=== PATIENT | female | born 1975 | race Caucasian/White ===

== ENCOUNTER 2017-10-04 12:17 | Emergency (ER) | payer OTHER ==
[~2017-10-04] VITALS: Ht 170.2 cm; Wt 114.8 kg
[~2017-10-04 12:17] MED LIST: ACIDOPHILUS1 EAC1 PO; AMOCLA875 PO; Bactrim Ds Tab1 EACH PO; CEPH500 PO; CRUTCH3 USE; FLUO10 PO; HYDACE5 PO; HYDR1TAB94 PO; IBUP400 PO; IBUP600 PO; IBUP800 PO; INSULANPEN SC; METF500 PO; MULVITMIND PO; NAPR500 PO; Norco 5-325 Ta1 EACH PO; OXYACE5T PO; PRED5 PO; PROM25 PO; RXOXYACE PO; SACC250C PO; TRAM50 PO; Therapeutic M1 EAC5 PO; VARE1 PO; Zofran4 MG PO
[2017-10-04] MEDS ORDERED: IBUPROFEN PO (12:37)
[2017-10-04] MEDS ORDERED: ACET500 PO (12:37)
[2017-10-04] MEDS ORDERED: Bactrim Ds Tab1 EACH PO (13:17)
[2017-10-04] MEDS ORDERED: Norco 5-325 Ta1 EACH PO (13:17)
[2017-10-04] MEDS ORDERED: Keflex500 MG PO (13:17)
[2017-10-07] MEDS ORDERED: Vibramycin100 MG PO (09:31)
== END 2017-10-04 13:27 | disposition home or self-care (01) ==
LOC: ER 12:17
DX: L08.9 Local infection of the skin and subcutaneous tissue, unspecified (principal); Z88.8 Allergy status to other drugs, medicaments and biological substances; Z79.899 Other long term (current) drug therapy; E11.9 Type 2 diabetes mellitus without complications; F17.200 Nicotine dependence, unspecified, uncomplicated
CPT/HCPCS: 87070; 87077; 87147; 87186; 87205; 99283

== ENCOUNTER 2017-10-10 14:43 | Inpatient (IN) | payer OTHER ==
[~2017-10-10] VITALS: Ht 170.2 cm; Wt 112.5 kg
[~2017-10-10 14:43] MED LIST changes: +ACET500 PO; +IBUPROFEN PO; +Keflex500 MG PO; +Vibramycin100 MG PO
[2017-10-10 15:08] LABS: BASOPHILS ABSOLUTE AUTO 0.07 K/mm3 (0.00-0.23); BASOPHILS PERCENT AUTO 1 % (0-2); EOSINOPHILS ABSOLUTE AUTO 0.24 K/mm3 (0.00-0.68); EOSINOPHILS PERCENT AUTO 3 % (0-6); Hematocrit 41.6 % (33.0-51.0); IMMATURE GRAN ABSOLUTE AUTO 0.26 K/mm3 (0.00-0.10); IMMATURE GRAN PERCENT AUTO 3 % (0-1); LYMPHOCYTES ABSOLUTE AUTO 3.67 K/mm3 (0.84-5.20); LYMPHOCYTES PERCENT AUTO 38 % (21-46); MONOCYTES ABSOLUTE AUTO 0.45 K/mm3 (0.16-1.47); MONOCYTES PERCENT AUTO 5 % (4-13); Mean Corpuscular HGB 29.5 pg (26.0-34.0); Mean Corpuscular HGB Conc 33.7 g/dL (31.5-36.5); Mean Corpuscular Volume 88 fL (80-100); Mean Platelet Volume 8.9 fL (9.1-12.4); NEUTROPHILS ABSOLUTE AUTO 4.95 K/mm3 (1.96-9.15); NEUTROPHILS PERCENT AUTO 51 % (41-73); Platelet Count 508 K/mm3 (150-400); RDW Coefficient Variation 12.6 % (11.7-14.2); RDW Standard Deviation 40.2 fL (35.1-46.3); Red Blood Cell Count 4.75 M/mm3 (3.80-5.20); White Blood Cell Count 9.64 K/mm3 (4.00-11.30)
[2017-10-10 15:36] LABS: Alanine Aminotransfer (ALT/SGP 15 U/L (12-78); Albumin, Blood 3.1 g/dL (3.4-5.0); Albumin/Globulin Ratio 0.4 (0.8-1.8); Alk Phos 106 U/L (50-136); Anion Gap 6 mmol/L (6-16); Aspartate Aminotrans (AST/SGOT 17 U/L (12-37); Bilirubin, Total 0.3 mg/dL (0.1-1.0); Blood Urea Nitrogen 19 mg/dL (8-24); Bun/Creatinine Ratio 28.2 (12.0-20.0); CO2, Blood 25 mmol/L (21-32); Calcium, Blood 9.4 mg/dL (8.5-10.1); Chloride, Blood 104 mmol/L (98-108); Creatinine, Blood 0.67 mg/dL (0.40-1.00); Globulin, Blood 7.4 g/dL (2.2-4.0); Glomerular Filtration Rate >60 (60-); Glucose, Blood 195 mg/dL (70-99); Potassium, Blood 4.6 mmol/L (3.5-5.5); Sodium, Blood 135 mmol/L (136-145); Total Protein, Blood 10.5 g/dL (6.4-8.2)
[2017-10-11 11:48] LABS: Free Thyroxine 0.85 ng/dL (0.70-1.60)
[2017-10-11 11:51] LABS: Thyroid Stimulating Hormone 10.4 uIU/mL (0.360-4.800)
[2017-10-11 15:22] LABS: Creatinine, Blood 0.58 mg/dL (0.40-1.00); Vancomycin, Trough 23.7 ug/mL (5.0-10.0)
[2017-10-12 09:50] LABS: Creatinine, Blood 0.58 mg/dL (0.40-1.00); Vancomycin, Trough 22.9 ug/mL (5.0-10.0)
[2017-10-13] MEDS ORDERED: HYDR1TAB94 PO (11:44)
[2017-10-13] MEDS ORDERED: VANCOMYCIN IV (11:46)
[2017-10-13] MEDS ORDERED: Synthroid25 MCG PO (11:47)
[2017-10-13 12:05] LABS: Vancomycin, Trough 16.6 ug/mL (5.0-10.0)
== END 2017-10-13 15:03 | DRG 580 ==
LOC: ER 14:43 → MEDS 16:03 → ER 10-11 07:30 → MEDS 10-13 15:03
PROVIDERS: Emergency Medicine; Internal Medicine; Pharmacist; Student in an Organized Health Care Education/Training Program
PROC: 0J9R0ZZ Drainage of Left Foot Subcutaneous Tissue and Fascia, Open Approach (ICD-10-PCS; principal; 2017-10-11 07:30)
PROC: 02HV33Z Insertion of Infusion Device into Superior Vena Cava, Percutaneous Approach (ICD-10-PCS; 2017-10-13)
DX: L03.116 Cellulitis of left lower limb (principal); L02.612 Cutaneous abscess of left foot; E11.52 Type 2 diabetes mellitus with diabetic peripheral angiopathy with gangrene; L97.429 Non-pressure chronic ulcer of left heel and midfoot with unspecified severity; I96 Gangrene, not elsewhere classified; E11.621 Type 2 diabetes mellitus with foot ulcer; E11.65 Type 2 diabetes mellitus with hyperglycemia; B95.62 Methicillin resistant Staphylococcus aureus infection as the cause of diseases classified elsewhere; E11.42 Type 2 diabetes mellitus with diabetic polyneuropathy; F17.200 Nicotine dependence, unspecified, uncomplicated; G89.29 Other chronic pain; E78.5 Hyperlipidemia, unspecified; E03.9 Hypothyroidism, unspecified; E66.01 Morbid (severe) obesity due to excess calories; Z68.38 Body mass index [BMI] 38.0-38.9, adult; Z79.2 Long term (current) use of antibiotics; Z88.8 Allergy status to other drugs, medicaments and biological substances; Z79.4 Long term (current) use of insulin; Z79.891 Long term (current) use of opiate analgesic; Z79.899 Other long term (current) drug therapy
CPT/HCPCS: 36415; 36569; 80053; 80202; 82565; 82947; 83690; 84439; 84443; 84481; 85025; 87070; 87075; 87077; 87147; 87186; 87205; 99285; C1751; J0171; J1650; J1815; J2543; J3010; J3370; J7030; J7050; J7120

== ENCOUNTER 2017-10-13 00:06 | Day surgery (SDC) | payer OTHER ==
[2017-10-13] MEDS ORDERED: HYDR1TAB94 PO (11:44)
[2017-10-13] MEDS ORDERED: VANCOMYCIN IV (11:46)
[2017-10-13] MEDS ORDERED: Synthroid25 MCG PO (11:47)
== END 2017-10-13 22:50 | disposition home or self-care (01) ==
LOC: ATC 00:06
DX: S91.302A Unspecified open wound, left foot, initial encounter (principal); B95.62 Methicillin resistant Staphylococcus aureus infection as the cause of diseases classified elsewhere; E11.65 Type 2 diabetes mellitus with hyperglycemia; E03.9 Hypothyroidism, unspecified; E66.01 Morbid (severe) obesity due to excess calories; E78.5 Hyperlipidemia, unspecified; F17.210 Nicotine dependence, cigarettes, uncomplicated; Z79.4 Long term (current) use of insulin

== ENCOUNTER → 2017-10-17 | Outpatient (CLI) | payer OTHER ==
[~2017-10-17] MED LIST changes: +Synthroid25 MCG PO; +VANCOMYCIN IV
[2017-10-17 13:13] LABS: Anion Gap 9 mmol/L (6-16); Blood Urea Nitrogen 14 mg/dL (8-24); Bun/Creatinine Ratio 17.1 (12.0-20.0); CO2, Blood 24 mmol/L (21-32); Calcium, Blood 8.6 mg/dL (8.5-10.1); Chloride, Blood 103 mmol/L (98-108); Creatinine, Blood 0.82 mg/dL (0.40-1.00); Glomerular Filtration Rate >60 (60-); Glucose, Blood 194 mg/dL (70-99); Sodium, Blood 136 mmol/L (136-145)
[2017-10-17 14:01] LABS: Vancomycin, Trough 26.4 ug/mL (5.0-10.0)
== END ==
LOC: EDSTATUS 11:55 → LAB RH 12:32
PROVIDERS: Family Medicine
DX: Z01.419 Encounter for gynecological examination (general) (routine) without abnormal findings (principal)
CPT/HCPCS: 80048; 80202

== ENCOUNTER → 2017-10-23 | Outpatient (CLI) | payer OTHER ==
[2017-10-23 13:04] LABS: Anion Gap 9 mmol/L (6-16); Blood Urea Nitrogen 15 mg/dL (8-24); Bun/Creatinine Ratio 15.8 (12.0-20.0); CO2, Blood 25 mmol/L (21-32); Calcium, Blood 8.9 mg/dL (8.5-10.1); Chloride, Blood 103 mmol/L (98-108); Creatinine, Blood 0.95 mg/dL (0.40-1.00); Glomerular Filtration Rate >60 (60-); Glucose, Blood 140 mg/dL (70-99); Potassium, Blood 4.3 mmol/L (3.5-5.5); Sodium, Blood 137 mmol/L (136-145); Vancomycin, Trough 18.7 ug/mL (5.0-10.0)
== END | disposition home or self-care (01) ==
LOC: EDSTATUS 11:11 → LAB RH 12:28
PROVIDERS: Family Medicine
DX: Z13.4 Encounter for screening for certain developmental disorders in childhood (principal); B95.62 Methicillin resistant Staphylococcus aureus infection as the cause of diseases classified elsewhere
CPT/HCPCS: 80048; 80202

== ENCOUNTER 2018-11-17 21:17 | Emergency (ER) | payer OTHER ==
[~2018-11-17] VITALS: Ht 170.2 cm; Wt 117.9 kg
== END 2018-11-18 01:49 | disposition home or self-care (01) ==
LOC: ER 21:17
DX: S80.02XA Contusion of left knee, initial encounter (principal); X50.9XXA Other and unspecified overexertion or strenuous movements or postures, initial encounter; Z88.8 Allergy status to other drugs, medicaments and biological substances; Z79.899 Other long term (current) drug therapy; E11.9 Type 2 diabetes mellitus without complications; F17.210 Nicotine dependence, cigarettes, uncomplicated
CPT/HCPCS: 73562-LT; 96372; 99283-25; J1885

== ENCOUNTER → 2021-01-02 | Outpatient (CLI) | payer OTHER | END | disposition home or self-care (01) | LOC: LAB 12:21 → LAB SHORT 12:21 | DX: N39.0 Urinary tract infection, site not specified (principal) | CPT/HCPCS: 87077; 87086; 87186 ==

== ENCOUNTER 2023-12-02 17:06 | Emergency (ER) | payer OTHER ==
[~2023-12-02] VITALS: Ht 170.2 cm; Wt 116.1 kg
[~2023-12-02 17:06] MED LIST changes: +COREG12.5 M1 PO; +Calcium Acetat667 MG PO; +FURO80 PO; +HYDRA25 PO; +LEVSOD25 PO; +MULVITA PO; +SODBIC650 PO
[2023-12-02 17:31] LABS: BASOPHILS ABSOLUTE AUTO 0.06 K/mm3 (0.00-0.23); BASOPHILS PERCENT AUTO 1 % (0-2); EOSINOPHILS ABSOLUTE AUTO 0.29 K/mm3 (0.00-0.68); EOSINOPHILS PERCENT AUTO 3 % (0-6); Hematocrit 29.9 % (33.0-51.0); Hemoglobin 9.8 g/dL (11.5-16.0); IMMATURE GRAN ABSOLUTE AUTO 0.08 K/mm3 (0.00-0.10); IMMATURE GRAN PERCENT AUTO 1 % (0-1); LYMPHOCYTES ABSOLUTE AUTO 3.74 K/mm3 (0.84-5.20); LYMPHOCYTES PERCENT AUTO 36 % (21-46); MONOCYTES ABSOLUTE AUTO 0.59 K/mm3 (0.16-1.47); MONOCYTES PERCENT AUTO 6 % (4-13); Mean Corpuscular HGB 29.2 pg (26.0-34.0); Mean Corpuscular HGB Conc 32.8 g/dL (31.5-36.5); Mean Corpuscular Volume 89 fL (80-100); Mean Platelet Volume 9.6 fL (9.1-12.4); NEUTROPHILS ABSOLUTE AUTO 5.76 K/mm3 (1.96-9.15); NEUTROPHILS PERCENT AUTO 55 % (41-73); Platelet Count 286 K/mm3 (150-400); RDW Coefficient Variation 13.5 % (11.7-14.2); RDW Standard Deviation 43.2 fL (35.1-46.3); Red Blood Cell Count 3.36 M/mm3 (3.80-5.20); White Blood Cell Count 10.52 K/mm3 (4.00-11.30)
[2023-12-02 17:52] LABS: Albumin, Blood 3.3 g/dL (3.4-5.0); Albumin/Globulin Ratio 0.5 (0.8-1.8); Bilirubin, Total 0.5 mg/dL (0.1-1.0); Bun/Creatinine Ratio 13.4 (12.0-20.0); Calcium, Blood 9.7 mg/dL (8.5-10.1); Creatinine, Blood 6.48 mg/dL (0.40-1.00); Globulin, Blood 6.1 g/dL (2.2-4.0); Magnesium, Blood 2.4 mg/dL (1.6-2.4); Potassium, Blood 3.9 mmol/L (3.5-5.5); Total Protein, Blood 9.4 g/dL (6.4-8.2)
[2023-12-02] MEDS ORDERED: MIDO5 PO (19:25)
[2023-12-02] MEDS ORDERED: BUMETANIDE2 M6 PO (19:26)
[2023-12-02] MEDS ORDERED: CALCIUM ACETAT667 M2 PO (19:27)
[2023-12-02 22:30] VITALS: BP 179/97
== END 2023-12-02 22:03 | disposition home or self-care (01) ==
LOC: ER 17:06
PROVIDERS: Physician Assistant
DX: T82.898A Other specified complication of vascular prosthetic devices, implants and grafts, initial encounter (principal); N18.6 End stage renal disease; E03.9 Hypothyroidism, unspecified; Z87.891 Personal history of nicotine dependence; Z88.8 Allergy status to other drugs, medicaments and biological substances; Z79.899 Other long term (current) drug therapy
CPT/HCPCS: 71045; 80053; 83735; 83880; 84484; 85025; 93005; 93010; 99284-25

== ENCOUNTER 2024-01-04 15:53 | Emergency (ER) | payer OTHER ==
[~2024-01-04] VITALS: Ht 170.2 cm; Wt 108.9 kg
[~2024-01-04 15:53] MED LIST changes: +BUMETANIDE2 M6 PO; +CALCIUM ACETAT667 M2 PO; +MIDO5 PO
[2024-01-04 16:00] VITALS: BP 179/114
[2024-01-04] MEDS ORDERED: Alteplase Recombinant 2 MG / Vial IV ONE ×2 (16:05→17:30)
== END 2024-01-04 17:53 | disposition home or self-care (01) ==
LOC: ER 15:53
DX: T82.49XA Other complication of vascular dialysis catheter, initial encounter (principal); Z88.8 Allergy status to other drugs, medicaments and biological substances; Z79.899 Other long term (current) drug therapy; E03.9 Hypothyroidism, unspecified; Z87.891 Personal history of nicotine dependence
CPT/HCPCS: 36593; 99283-25; J2997

== ENCOUNTER 2024-04-18 18:56 | Emergency (ER) | payer MEDICARE, OTHER ==
[~2024-04-18] VITALS: Ht 170.2 cm; Wt 120.0 kg
[2024-04-18] MEDS ORDERED: RENAL VITAMIN0.8 MG PO ×2 (19:27)
[2024-04-18] MEDS ORDERED: CETI5 PO ×2 (19:29)
[2024-04-18 20:35] LABS: BASOPHILS ABSOLUTE AUTO 0.06 K/mm3 (0.00-0.23); BASOPHILS PERCENT AUTO 1 % (0-2); EOSINOPHILS ABSOLUTE AUTO 0.16 K/mm3 (0.00-0.68); EOSINOPHILS PERCENT AUTO 2 % (0-6); Hematocrit 33.3 % (33.0-51.0); Hemoglobin 11.3 g/dL (11.5-16.0); IMMATURE GRAN ABSOLUTE AUTO 0.09 K/mm3 (0.00-0.10); IMMATURE GRAN PERCENT AUTO 1 % (0-1); LYMPHOCYTES ABSOLUTE AUTO 3.08 K/mm3 (0.84-5.20); LYMPHOCYTES PERCENT AUTO 35 % (21-46); MONOCYTES ABSOLUTE AUTO 0.43 K/mm3 (0.16-1.47); MONOCYTES PERCENT AUTO 5 % (4-13); Mean Corpuscular HGB 30.6 pg (26.0-34.0); Mean Corpuscular HGB Conc 33.9 g/dL (31.5-36.5); Mean Corpuscular Volume 90 fL (80-100); Mean Platelet Volume 9.8 fL (9.1-12.4); NEUTROPHILS ABSOLUTE AUTO 4.98 K/mm3 (1.96-9.15); NEUTROPHILS PERCENT AUTO 57 % (41-73); Platelet Count 285 K/mm3 (150-400); RDW Coefficient Variation 14.3 % (11.7-14.2); RDW Standard Deviation 46.6 fL (35.1-46.3); Red Blood Cell Count 3.69 M/mm3 (3.80-5.20)
[2024-04-18 20:50] LABS: Albumin/Globulin Ratio 0.5 (0.8-1.8); Bilirubin, Total 0.2 mg/dL (0.1-1.0); Bun/Creatinine Ratio 11.9 (12.0-20.0); Calcium, Blood 8.9 mg/dL (8.5-10.1); Creatinine, Blood 3.36 mg/dL (0.40-1.00); Magnesium, Blood 2.3 mg/dL (1.6-2.4); Potassium, Blood 3.3 mmol/L (3.5-5.5)
[2024-04-18 21:00] VITALS: BP 137/101
[2024-04-21] MEDS ORDERED: Prozac20 MG PO ×2 (02:36)
[2024-04-21] MEDS ORDERED: ELIQUIS5 M2 PO ×2 (14:03)
[2024-04-21] MEDS ORDERED: AMOCLA875 PO ×2 (14:04)
== END 2024-04-18 21:23 | disposition home or self-care (01) ==
LOC: ER 18:56
PROVIDERS: Student in an Organized Health Care Education/Training Program
DX: R13.10 Dysphagia, unspecified (principal); N18.6 End stage renal disease; E03.9 Hypothyroidism, unspecified; F17.290 Nicotine dependence, other tobacco product, uncomplicated; Z79.899 Other long term (current) drug therapy; Z88.8 Allergy status to other drugs, medicaments and biological substances
CPT/HCPCS: 70360; 71045; 80053; 83735; 85025; 99284-25

== ENCOUNTER 2024-04-20 12:09 | Emergency (ER) | payer MEDICARE, OTHER ==
[~2024-04-20] VITALS: Ht 170.2 cm; Wt 120.0 kg
[~2024-04-20 12:09] MED LIST changes: +CETI5 PO; +RENAL VITAMIN0.8 MG PO
[2024-04-20 12:26] VITALS: BP 132/91
[2024-04-20 12:47] LABS: BASOPHILS ABSOLUTE AUTO 0.05 K/mm3 (0.00-0.23); BASOPHILS PERCENT AUTO 1 % (0-2); EOSINOPHILS ABSOLUTE AUTO 0.16 K/mm3 (0.00-0.68); EOSINOPHILS PERCENT AUTO 2 % (0-6); IMMATURE GRAN ABSOLUTE AUTO 0.06 K/mm3 (0.00-0.10); IMMATURE GRAN PERCENT AUTO 1 % (0-1); LYMPHOCYTES ABSOLUTE AUTO 2.35 K/mm3 (0.84-5.20); LYMPHOCYTES PERCENT AUTO 28 % (21-46); MONOCYTES ABSOLUTE AUTO 0.53 K/mm3 (0.16-1.47); MONOCYTES PERCENT AUTO 6 % (4-13); Mean Corpuscular HGB 30.1 pg (26.0-34.0); Mean Corpuscular HGB Conc 32.4 g/dL (31.5-36.5); Mean Corpuscular Volume 93 fL (80-100); Mean Platelet Volume 9.7 fL (9.1-12.4); NEUTROPHILS ABSOLUTE AUTO 5.41 K/mm3 (1.96-9.15); NEUTROPHILS PERCENT AUTO 63 % (41-73); Platelet Count 287 K/mm3 (150-400); RDW Coefficient Variation 14.3 % (11.7-14.2); RDW Standard Deviation 48.6 fL (35.1-46.3); Red Blood Cell Count 3.65 M/mm3 (3.80-5.20); White Blood Cell Count 8.56 K/mm3 (4.00-11.30)
[2024-04-20 13:18] LABS: Albumin/Globulin Ratio 0.5 (0.8-1.8); Bilirubin, Total 0.3 mg/dL (0.1-1.0); Bun/Creatinine Ratio 13.2 (12.0-20.0); Calcium, Blood 9.5 mg/dL (8.5-10.1); Globulin, Blood 5.7 g/dL (2.2-4.0); Potassium, Blood 3.7 mmol/L (3.5-5.5); Total Protein, Blood 8.7 g/dL (6.4-8.2)
[2024-04-21] MEDS ORDERED: Prozac20 MG PO (02:36)
[2024-04-21] MEDS ORDERED: ELIQUIS5 M2 PO (14:03)
[2024-04-21] MEDS ORDERED: AMOCLA875 PO (14:04)
== END 2024-04-20 16:04 | disposition left against medical advice (07) ==
LOC: ER 12:09
PROVIDERS: Physician Assistant
DX: R93.89 Abnormal findings on diagnostic imaging of other specified body structures (principal); R60.9 Edema, unspecified; Z53.29 Procedure and treatment not carried out because of patient's decision for other reasons
CPT/HCPCS: 70491; 80053; 85025; 99283-25; Q9967

== ENCOUNTER 2024-04-20 17:01 | Observation (INO) | payer MEDICARE, OTHER ==
[~2024-04-20] VITALS: Ht 170.2 cm; Wt 121.1 kg
[2024-04-20] MEDS ORDERED: Ondansetron HCl 2 MG / ML 2ML Vial IV PRN (19:45)
[2024-04-20] MEDS ORDERED: FentaNYL Citrate 50 MCG/ML 2 ML Injection IV PRN (19:45)
[2024-04-20] MEDS ORDERED: FLU VACC TS2024-25(6MOS UP)/PF 45 MCG/0.5 ML SYRINGE IM ONE (19:45)
[2024-04-20] MEDS ORDERED: NS 1,000 ML IV SCH (20:00)
[2024-04-20 20:36] LABS: Anti-Xa UFH, PHA Monitoring <0.10 IU/mL; International Normalized Ratio 1.03
[2024-04-20] MEDS ORDERED: CeFAZolin Sodium 1,000 MG in NS 50 ML IV SCH (21:00)
[2024-04-20] MEDS ORDERED: Dose Adjust by Pharmacy XX STA (21:01)
[2024-04-20] MEDS ORDERED: Heparin Sodium 5000 Units/ML 1ML MDV IV ONE (21:05)
[2024-04-20] MEDS ORDERED: Heparin Sodium,Porcine/0.5 NS 500 ML IV SCH (21:05)
[2024-04-20] MEDS ORDERED: Acetaminophen 325 MG TABLET PO PRN (23:40)
[2024-04-20] MEDS ORDERED: Calcium Acetate 667 MG Gel Cap PO SCH (23:40)
[2024-04-21] VITALS (13 sets, daily range): BP systolic 91–188; BP diastolic 57–102
[2024-04-21] MEDS ORDERED: Prozac20 MG PO (02:36)
[2024-04-21 03:30] LABS: BASOPHILS ABSOLUTE AUTO 0.05 K/mm3 (0.00-0.23); BASOPHILS PERCENT AUTO 1 % (0-2); EOSINOPHILS ABSOLUTE AUTO 0.19 K/mm3 (0.00-0.68); EOSINOPHILS PERCENT AUTO 2 % (0-6); Hemoglobin 10.9 g/dL (11.5-16.0); IMMATURE GRAN ABSOLUTE AUTO 0.06 K/mm3 (0.00-0.10); IMMATURE GRAN PERCENT AUTO 1 % (0-1); LYMPHOCYTES ABSOLUTE AUTO 3.09 K/mm3 (0.84-5.20); LYMPHOCYTES PERCENT AUTO 36 % (21-46); MONOCYTES ABSOLUTE AUTO 0.54 K/mm3 (0.16-1.47); MONOCYTES PERCENT AUTO 6 % (4-13); Mean Corpuscular HGB 30.4 pg (26.0-34.0); Mean Corpuscular HGB Conc 32.1 g/dL (31.5-36.5); Mean Corpuscular Volume 95 fL (80-100); Mean Platelet Volume 9.8 fL (9.1-12.4); NEUTROPHILS ABSOLUTE AUTO 4.58 K/mm3 (1.96-9.15); NEUTROPHILS PERCENT AUTO 54 % (41-73); Platelet Count 257 K/mm3 (150-400); RDW Coefficient Variation 14.5 % (11.7-14.2); RDW Standard Deviation 49.4 fL (35.1-46.3); Red Blood Cell Count 3.59 M/mm3 (3.80-5.20); White Blood Cell Count 8.51 K/mm3 (4.00-11.30)
[2024-04-21 03:51] LABS: Albumin, Blood 2.9 g/dL (3.4-5.0); Albumin/Globulin Ratio 0.5 (0.8-1.8); Bilirubin, Total 0.3 mg/dL (0.1-1.0); Calcium, Blood 9.4 mg/dL (8.5-10.1); Creatinine, Blood 5.5 mg/dL (0.40-1.00); Globulin, Blood 5.6 g/dL (2.2-4.0); Magnesium, Blood 2.5 mg/dL (1.6-2.4); Phosphorus, Blood 5.9 mg/dL (2.5-4.9); Potassium, Blood 3.4 mmol/L (3.5-5.5); Total Protein, Blood 8.5 g/dL (6.4-8.2)
[2024-04-21] MEDS ORDERED: Dose Adjust by Pharmacy XX STA ×2 (04:15→10:41)
[2024-04-21] MEDS ORDERED: Potassium Chloride 10 Meq Tablet SA PO ONE (05:15)
[2024-04-21] MEDS ORDERED: Calcium Acetate 667 MG Gel Cap PO SCH (08:30)
[2024-04-21] MEDS ORDERED: NS 250 ML IV PRN (08:50)
[2024-04-21] MEDS ORDERED: Furosemide 40 MG Tab PO SCH (09:00)
[2024-04-21] MEDS ORDERED: ELIQUIS5 M2 PO (14:03)
[2024-04-21] MEDS ORDERED: AMOCLA875 PO (14:04)
[2024-04-21] MEDS ORDERED: Midodrine 5 MG Tab PO ONE (17:05)
[2024-04-21] MEDS ORDERED: Apixaban 5 MG Tab PO SCH (18:00)
--- NOTE | 2024-04-21 18:10 | NUR ---
REPORT RECEIVED VERIFIED PT TIRED AND SLEEPING PEACFULLY, HEPARIN INFUSING AND VERIFIED WITH RN. POSSIBLE DISCHARGE TODAY AFTER DIALYSIS, PT HAS CALL LIGHT AND CAN MAKE NEEDS KNOWN
--- NOTE | 2024-04-21 18:13 | NUR ---
ORDERS TO BE DISCHARGED AFTER DIALYSIS. PT REFUSED DIALYSIS TODAY BECAUSE SHE NEEDED TO GET A RIDE AND WAS AFRAID HER BENIFITS DIDNT PROVIDE TRANSPORTATION. AFTER CASE MANAGEMENT WAS NOTIFIED, BENIFITS WERE VERIFIED AND PT AGREED TO DIALYSIS. 1715 PT BACK FROM DIALYSIS JARAD WELL ELIQUIS GIVEN , DISCHARGE INFORMATION GIVEN, IV DCED PT DCED
[2024-04-23 09:51] LABS: C-1-ESTERASE INHIBITOR 41 mg/dL (21-38)
== END 2024-04-21 17:50 | disposition home or self-care (01) ==
LOC: ER 17:01 → ERHOLD 19:43 → MEDS 19:43
PROVIDERS: Internal Medicine; Student in an Organized Health Care Education/Training Program; ADMIT Internal Medicine
DX: I82.A12 Acute embolism and thrombosis of left axillary vein (principal); I82.612 Acute embolism and thrombosis of superficial veins of left upper extremity; R59.0 Localized enlarged lymph nodes; R60.0 Localized edema; D64.9 Anemia, unspecified; E87.1 Hypo-osmolality and hyponatremia; I12.0 Hypertensive chronic kidney disease with stage 5 chronic kidney disease or end stage renal disease; E11.22 Type 2 diabetes mellitus with diabetic chronic kidney disease; N18.6 End stage renal disease; E78.5 Hyperlipidemia, unspecified; E03.9 Hypothyroidism, unspecified; Z88.8 Allergy status to other drugs, medicaments and biological substances; Z79.899 Other long term (current) drug therapy; E11.51 Type 2 diabetes mellitus with diabetic peripheral angiopathy without gangrene; R93.89 Abnormal findings on diagnostic imaging of other specified body structures; R60.9 Edema, unspecified; Z53.29 Procedure and treatment not carried out because of patient's decision for other reasons
CPT/HCPCS: 36415; 70491; 80053; 83735; 84100; 85025; 85520; 85610; 85730; 86160; 93970; 96365; 96366; 96367; 99283-25; 99285-25; A9270; G0257; G0378; J0690; J1644; J7030; Q9967

== ENCOUNTER 2024-06-25 05:38 | Day surgery (SDC) | payer MEDICARE, OTHER ==
[~2024-06-25] VITALS: Ht 170.2 cm; Wt 115.2 kg
[~2024-06-25 05:38] MED LIST changes: +ELIQUIS5 M2 PO; +Prozac20 MG PO; +VELPHORO PO
[2024-06-25] MEDS ORDERED: NS 1,000 ML IV ONE (06:46)
[2024-06-25] MEDS ORDERED: Heparin Sodium 1000 Units/ML 10ML MDV ONE ×2 (06:46→08:05)
[2024-06-25 06:56] VITALS: BP 154/88
[2024-06-25 07:05] VITALS: BP 154/88
[2024-06-25] MEDS ORDERED: NS 500 ML IV ONE (07:27)
[2024-06-25] MEDS ORDERED: Midazolam HCl 1MG / ML 2ML Vial ONE (07:27)
[2024-06-25] MEDS ORDERED: FentaNYL Citrate 50 MCG/ML 2 ML Injection ONE (07:27)
[2024-06-25] MEDS ORDERED: CeFAZolin Sodium 2,000 MG VIAL ONE (08:23)
[2024-06-25] MEDS ORDERED: NS 100 ML IV ONE (08:24)
--- NOTE | 2024-06-25 09:32 | NUR ---
PT BACK TO RECOERY ROOM. TO ALERT AND ORIENTED.
[2024-06-25 09:35] VITALS: BP 142/64
[2024-06-25 09:45] VITALS: BP 145/88
[2024-06-25 10:00] VITALS: BP 133/112
--- NOTE | 2024-06-25 10:00 | NUR ---
DR DEVI IN TO SEE PT.
[2024-06-25 10:17] VITALS: BP 106/78
--- NOTE | 2024-06-25 11:00 | NUR ---
PT VERBALIZE D/C INSTRUCTIONS. IV D/C CATHETER INTACT. PT GIVEN DRESSING TO TAKE HOME FOR THE OLD PERMACATH SITE. PT WHEELED OUT TO CAR WITH INSTRUCTIONS IN HAND.
== END 2024-06-25 13:10 | disposition home or self-care (01) ==
LOC: MHTC 05:38
DX: T82.49XA Other complication of vascular dialysis catheter, initial encounter (principal); N18.6 End stage renal disease; I82.C29 Chronic embolism and thrombosis of unspecified internal jugular vein; Z87.891 Personal history of nicotine dependence; Z79.01 Long term (current) use of anticoagulants; Z79.899 Other long term (current) drug therapy; Z88.8 Allergy status to other drugs, medicaments and biological substances
CPT/HCPCS: 76937; 99152; 99153; C1750; C1769; C1894; J0690; J1644; J2250; J3010; J7030; J7040; Q9967

== ENCOUNTER 2024-06-26 10:59 | Emergency (ER) | payer MEDICARE, OTHER ==
[~2024-06-26] VITALS: Ht 170.2 cm; Wt 110.0 kg
[2024-06-26 11:16] VITALS: BP 133/74
[2024-06-26 11:53] LABS: BASOPHILS ABSOLUTE AUTO 0.06 K/mm3 (0.00-0.23); BASOPHILS PERCENT AUTO 1 % (0-2); EOSINOPHILS ABSOLUTE AUTO 0.22 K/mm3 (0.00-0.68); EOSINOPHILS PERCENT AUTO 5 % (0-6); Hematocrit 28.1 % (33.0-51.0); Hemoglobin 8.7 g/dL (11.5-16.0); IMMATURE GRAN ABSOLUTE AUTO 0.05 K/mm3 (0.00-0.10); IMMATURE GRAN PERCENT AUTO 1 % (0-1); LYMPHOCYTES ABSOLUTE AUTO 1.06 K/mm3 (0.84-5.20); LYMPHOCYTES PERCENT AUTO 22 % (21-46); MONOCYTES ABSOLUTE AUTO 0.44 K/mm3 (0.16-1.47); MONOCYTES PERCENT AUTO 9 % (4-13); Mean Corpuscular HGB 30.1 pg (26.0-34.0); Mean Corpuscular Volume 97 fL (80-100); Mean Platelet Volume 9.4 fL (9.1-12.4); NEUTROPHILS ABSOLUTE AUTO 3.03 K/mm3 (1.96-9.15); NEUTROPHILS PERCENT AUTO 62 % (41-73); Platelet Count 236 K/mm3 (150-400); RDW Coefficient Variation 15.3 % (11.7-14.2); RDW Standard Deviation 53.8 fL (35.1-46.3); Red Blood Cell Count 2.89 M/mm3 (3.80-5.20); White Blood Cell Count 4.86 K/mm3 (4.00-11.30)
[2024-06-26 12:17] LABS: Albumin, Blood 3.2 g/dL (3.4-5.0); Albumin/Globulin Ratio 0.6 (0.8-1.8); Bilirubin, Total 0.4 mg/dL (0.1-1.0); Bun/Creatinine Ratio 8.2 (12.0-20.0); Creatinine, Blood 6.84 mg/dL (0.40-1.00); Globulin, Blood 5.4 g/dL (2.2-4.0); Potassium, Blood 4.1 mmol/L (3.5-5.5); Total Protein, Blood 8.6 g/dL (6.4-8.2)
== END 2024-06-26 15:14 | disposition home or self-care (01) ==
LOC: ER 10:59
PROVIDERS: Physician Assistant
DX: T82.590A Other mechanical complication of surgically created arteriovenous fistula, initial encounter (principal); Y83.8 Other surgical procedures as the cause of abnormal reaction of the patient, or of later complication, without mention of misadventure at the time of the procedure; Z88.8 Allergy status to other drugs, medicaments and biological substances; I12.0 Hypertensive chronic kidney disease with stage 5 chronic kidney disease or end stage renal disease; E11.22 Type 2 diabetes mellitus with diabetic chronic kidney disease; N18.6 End stage renal disease; E03.9 Hypothyroidism, unspecified; F17.210 Nicotine dependence, cigarettes, uncomplicated; Z79.899 Other long term (current) drug therapy; Z79.01 Long term (current) use of anticoagulants; Z99.2 Dependence on renal dialysis
CPT/HCPCS: 80053; 85025; 93005; 93010; 99284-25

== ENCOUNTER 2024-06-28 10:10 | Emergency (ER) | payer MEDICARE, OTHER ==
[~2024-06-28] VITALS: Ht 170.2 cm; Wt 110.0 kg
[2024-06-28 13:20] LABS: BASOPHILS ABSOLUTE AUTO 0.06 K/mm3 (0.00-0.23); BASOPHILS PERCENT AUTO 1 % (0-2); EOSINOPHILS ABSOLUTE AUTO 0.24 K/mm3 (0.00-0.68); EOSINOPHILS PERCENT AUTO 4 % (0-6); Hematocrit 27.2 % (33.0-51.0); Hemoglobin 8.8 g/dL (11.5-16.0); IMMATURE GRAN ABSOLUTE AUTO 0.05 K/mm3 (0.00-0.10); IMMATURE GRAN PERCENT AUTO 1 % (0-1); LYMPHOCYTES ABSOLUTE AUTO 1.25 K/mm3 (0.84-5.20); LYMPHOCYTES PERCENT AUTO 19 % (21-46); MONOCYTES ABSOLUTE AUTO 0.52 K/mm3 (0.16-1.47); MONOCYTES PERCENT AUTO 8 % (4-13); Mean Corpuscular HGB Conc 32.4 g/dL (31.5-36.5); Mean Corpuscular Volume 96 fL (80-100); Mean Platelet Volume 10.2 fL (9.1-12.4); NEUTROPHILS ABSOLUTE AUTO 4.63 K/mm3 (1.96-9.15); NEUTROPHILS PERCENT AUTO 69 % (41-73); Platelet Count 248 K/mm3 (150-400); RDW Standard Deviation 52.2 fL (35.1-46.3); Red Blood Cell Count 2.84 M/mm3 (3.80-5.20); White Blood Cell Count 6.75 K/mm3 (4.00-11.30)
[2024-06-28 13:38] LABS: Albumin, Blood 3.2 g/dL (3.4-5.0); Albumin/Globulin Ratio 0.6 (0.8-1.8); Bilirubin, Total 0.6 mg/dL (0.1-1.0); Calcium, Blood 9.6 mg/dL (8.5-10.1); Creatinine, Blood 7.22 mg/dL (0.40-1.00); Globulin, Blood 5.4 g/dL (2.2-4.0); Potassium, Blood 4.3 mmol/L (3.5-5.5); Total Protein, Blood 8.6 g/dL (6.4-8.2)
[2024-06-28] MEDS ORDERED: Heparin Sodium 1000 Units/ML 10ML MDV ONE (15:08)
[2024-06-28] MEDS ORDERED: NS 500 ML IV ONE ×2 (15:09→15:21)
[2024-06-28] MEDS ORDERED: Midazolam HCl 1MG / ML 2ML Vial ONE (15:21)
[2024-06-28] MEDS ORDERED: FentaNYL Citrate 50 MCG/ML 2 ML Injection ONE (15:21)
--- NOTE | 2024-06-28 16:21 | NUR ---
PT TO OUR RECOVERY ROOM. PT DROWSY, BUT WAKES UP EASILY WITH VERBAL STIMULI. VSS. R GROIN PER CATH SECURE, NO BLEEDING.
[2024-06-28 16:27] VITALS: BP 91/66
[2024-06-28 16:45] VITALS: BP 120/60
[2024-06-28 17:00] VITALS: BP 159/72
--- NOTE | 2024-06-28 17:38 | NUR ---
PT VERBALIZE D/C INSTRUCTIONS. PT FOLLOWING UP WITH DIALYSIS TOMORROW. IV D/C CATHETER INTACT. PT WHEELED OUT TO SPOUSE VEHICLE WITH PAPERWORK IN HAND.
== END 2024-06-28 15:12 | disposition home or self-care (01) ==
LOC: ER 10:10
PROVIDERS: Student in an Organized Health Care Education/Training Program
DX: T82.41XA Breakdown (mechanical) of vascular dialysis catheter, initial encounter (principal); E03.9 Hypothyroidism, unspecified; E11.22 Type 2 diabetes mellitus with diabetic chronic kidney disease; N18.9 Chronic kidney disease, unspecified; F17.210 Nicotine dependence, cigarettes, uncomplicated; Z79.899 Other long term (current) drug therapy; Z88.8 Allergy status to other drugs, medicaments and biological substances
CPT/HCPCS: 76937; 80053; 85025; 93005; 93010; 99152; 99284-25; C1750; C1769; J1644; J2250; J3010; J7040; Q9967

== ENCOUNTER 2024-07-09 16:32 | Inpatient (IN) | payer MEDICARE, OTHER ==
[~2024-07-09] VITALS: Ht 170.2 cm; Wt 114.0 kg
[2024-07-09] VITALS (20 sets, daily range): BP systolic 123–234; BP diastolic 51–89
[2024-07-09 16:53] LABS: Hematocrit 25.7 % (33.0-51.0); Hemoglobin 8.2 g/dL (11.5-16.0); Mean Corpuscular HGB 31.4 pg (26.0-34.0); Mean Corpuscular HGB Conc 31.9 g/dL (31.5-36.5); Mean Corpuscular Volume 99 fL (80-100); Mean Platelet Volume 9.4 fL (9.1-12.4); NRBC ABSOLUTE 0.02 K/mm3 (0.00-0.02); NRBC Auto 0.2 /100 WBC (0.0-0.2); Platelet Count 216 K/mm3 (150-400); RDW Coefficient Variation 15.9 % (11.7-14.2); RDW Standard Deviation 56.9 fL (35.1-46.3); Red Blood Cell Count 2.61 M/mm3 (3.80-5.20); White Blood Cell Count 13.26 K/mm3 (4.00-11.30)
[2024-07-09 17:10] LABS: International Normalized Ratio 1.08; Prothrombin Time Results 11.5 Sec (9.7-11.5)
[2024-07-09 17:12] LABS: Albumin, Blood 2.8 g/dL (3.4-5.0); Albumin/Globulin Ratio 0.6 (0.8-1.8); Bilirubin, Total 0.6 mg/dL (0.1-1.0); Calcium, Blood 9.3 mg/dL (8.5-10.1); Creatinine, Blood 6.68 mg/dL (0.40-1.00); Potassium, Blood 4.3 mmol/L (3.5-5.5); Total Protein, Blood 7.8 g/dL (6.4-8.2)
[2024-07-09 17:14] LABS: BAND PERCENT MAN 2 % (0-8); BASOPHILS ABSOLUTE MAN 0.13 K/mm3 (0.00-0.23); BASOPHILS PERCENT MAN 1 % (0-2); EOSINOPHILS ABSOLUTE MAN 0.26 K/mm3 (0.00-0.68); EOSINOPHILS PERCENT MAN 2 % (0-6); LYMPHOCYTES PERCENT MAN 37 % (21-46); METAMYELOCYTE ABSOLUTE MAN 0.53 K/mm3 (0.00-0.00); METAMYELOCYTE PERCENT MAN 4 % (0-0); MONOCYTES ABSOLUTE MAN 0.66 K/mm3 (0.16-1.47); MONOCYTES PERCENT MAN 5 % (4-13); MYELOCYTE ABSOLUTE MAN 0.13 K/mm3 (0.00-0.00); MYELOCYTE PERCENT MAN 1 % (0-0); NEUTROPHILS ABSOLUTE MAN 6.63 K/mm3 (1.96-9.15); SEG NEUTROPHILS PERCENT MAN 48 % (41-73); TOTAL CELLS COUNTED 100
[2024-07-09] MEDS ORDERED: fentaNYL citrate 1,000 MCG in NS 80 ML IV SCH (17:15)
[2024-07-09] MEDS ORDERED: propofoL 100 ML IV SCH (17:15)
[2024-07-09 17:23] LABS: Chloride (POC) 97 mmol/L (98-108); Creatinine (POC) 7.3 mg/dL (0.6-1.0); Glucose (ISTAT POC) 303 mg/dL (70-99); Hemoglobin (POC) 9.5 g/dL (12.0-16.0); Potassium (POC) 4.3 mmol/L (3.5-5.5); Sodium (POC) 131 mmol/L (135-148); Total CO2 (POC) 20 mmol/L (21-32)
--- NOTE | 2024-07-09 17:56 | NUR ---
"[facility] | ED | Family Support Pt. is being attended in ED26. This egg caser is called to be with PtsLino bhat in ED Consult room. Facilitated a lengthy life review with the spouse. With theraputic listening a measure of rapport was established. Sat with Pt. as doctor gave initial diagnosis. Prayed with the Spouse and other family after they arrived. Family displayed evidence of understanding and gratitude for the care. Since the Consult room was crowded, this egg caser brought them to the ICU waiting room, and then notified the staff that they would be there till the Pt. is taken into ICU. Spouse gave this egg caser a big hug of gratitude."
[2024-07-09] MEDS ORDERED: Piperacillin/Tazobactam Sod 3.375 GM in NS 100 ML IV ONE (18:15)
[2024-07-09] MEDS ORDERED: Vancomycin HCL 2,000 MG in NS 520 ML IV ONE (18:15)
[2024-07-09 18:22] LABS: Source, Urine Foley catheter
[2024-07-09] MEDS ORDERED: NiCARdipine HCL 50 MG in NS 250 ML IV SCH (18:25)
[2024-07-09 18:29] LABS: Appearance, Urine Clear (Clear); Bilirubin, Urine Neg (Neg); Blood, Urine 5+ (Neg); Color, Urine Yellow (P-Yellow); Glucose Qualitative, Urine 4+ (Neg); Ketones, Urine Neg (Neg); Leukocyte Esterase, Urine 1+ (Neg); Nitrite, Urine Neg (Neg); Protein, Urine 4+ (Neg); Specific Gravity, Urine 1.015 (1.003-1.022); Urobilinogen, Urine NORM (Normal)
[2024-07-09] MEDS ORDERED: LORazepam 2 MG/ML 1ML Injection ONE (18:41)
[2024-07-09 18:44] LABS: Amorphous Light (0-Heavy); Bacteria Few /hpf; Squamous Epithelial Cells Few /hpf (Few)
[2024-07-09 18:45] LABS: Hyaline Casts 0-2 /lpf (0-2)
[2024-07-09] MEDS ORDERED: LORazepam 2 MG/ML 1ML Injection IV ONE (18:45)
[2024-07-09 18:57] LABS: U Amphetamine Screen Not Detected; U Barbituate Screen Not Detected; U Benzodiazapine Screen Not Detected; U Buprenorphine Screen Not Detected; U Cannabinoids Screen Not Detected; U Cocaine Screen Not Detected; U Methadone Screen Not Detected; U Methamphetamine Screen Not Detected; U Opiates Screen Not Detected; U Oxycodone Screen Not Detected; U Phencyclidine Screen Not Detected
[2024-07-09] MEDS ORDERED: NiCARdipine HCL 500 MCG/5 ML SYR IV SCH (19:05)
[2024-07-09] MEDS ORDERED: LORazepam 2 MG/ML 1ML Injection IV PRN (19:05)
[2024-07-09] MEDS ORDERED: FLU VACC TS2024-25(6MOS UP)/PF 45 MCG/0.5 ML SYRINGE IM ONE (19:10)
[2024-07-09] MEDS ORDERED: Cetylpyridinium Chloride 1 EA MISC MT SCH ×2 (20:00→21:05)
[2024-07-09] MEDS ORDERED: NS 500 ML IV ONE (20:07)
[2024-07-09] MEDS ORDERED: NS 500 ML IV SCH (20:20)
[2024-07-09] MEDS ORDERED: NS 250 ML IV PRN (20:25)
[2024-07-09] MEDS ORDERED: Azithromycin 500 MG in NS 250 ML IV SCH (21:00)
[2024-07-09] MEDS ORDERED: Apixaban 5 MG Tab PT SCH (21:00)
[2024-07-09] MEDS ORDERED: CefTRIAXone Sodium 2,000 MG in NS 100 ML IV SCH (21:00)
[2024-07-09 21:22] LABS: Base Excess Venous -3.2 mmol/L; Bicarbonate Venous 21.6 mmol/L (24.0-30.0); PCO2 Venous 37.9 mmHg (38-42); pH Blood Venous 7.37 (7.34-7.37)
[2024-07-09] MEDS ORDERED: Pantoprazole Sodium 40 MG Injection IV SCH (22:00)
[2024-07-10] VITALS (58 sets, daily range): BP systolic 90–199; BP diastolic 53–87
[2024-07-10] MEDS ORDERED: Hydrogen Peroxide 1.5 % Solution MT SCH ×2
[2024-07-10] MEDS ORDERED: Insulin Human Lispro 100 Units/ML 3ML Syringe SC SCH
[2024-07-10 03:42] LABS: BASOPHILS ABSOLUTE AUTO 0.02 K/mm3 (0.00-0.23); BASOPHILS PERCENT AUTO 0 % (0-2); EOSINOPHILS PERCENT AUTO 0 % (0-6); Hematocrit 24.1 % (33.0-51.0); Hemoglobin 8.1 g/dL (11.5-16.0); IMMATURE GRAN ABSOLUTE AUTO 0.07 K/mm3 (0.00-0.10); IMMATURE GRAN PERCENT AUTO 1 % (0-1); LYMPHOCYTES ABSOLUTE AUTO 0.26 K/mm3 (0.84-5.20); LYMPHOCYTES PERCENT AUTO 3 % (21-46); MONOCYTES ABSOLUTE AUTO 0.48 K/mm3 (0.16-1.47); MONOCYTES PERCENT AUTO 5 % (4-13); Mean Corpuscular HGB 31.8 pg (26.0-34.0); Mean Corpuscular HGB Conc 33.6 g/dL (31.5-36.5); Mean Corpuscular Volume 95 fL (80-100); Mean Platelet Volume 9.3 fL (9.1-12.4); NEUTROPHILS ABSOLUTE AUTO 8.23 K/mm3 (1.96-9.15); NEUTROPHILS PERCENT AUTO 91 % (41-73); Platelet Count 195 K/mm3 (150-400); RDW Coefficient Variation 15.9 % (11.7-14.2); RDW Standard Deviation 54.4 fL (35.1-46.3); Red Blood Cell Count 2.55 M/mm3 (3.80-5.20); White Blood Cell Count 9.06 K/mm3 (4.00-11.30)
[2024-07-10 03:51] LABS: Base Excess Venous -1.5 mmol/L; Bicarbonate Venous 23.6 mmol/L (24.0-30.0); PCO2 Venous 27.9 mmHg (38-42)
[2024-07-10 04:00] LABS: International Normalized Ratio 1.02; Prothrombin Time Results 10.9 Sec (9.7-11.5)
[2024-07-10 04:06] LABS: Alanine Aminotransfer (ALT/SGP 39 U/L (12-78); Albumin/Globulin Ratio 0.5 (0.8-1.8); Alk Phos 70 U/L (50-136); Anion Gap 18 mmol/L (3-11); Aspartate Aminotrans (AST/SGOT 71 U/L (12-37); Bilirubin, Total 0.4 mg/dL (0.1-1.0); Blood Urea Nitrogen 72 mg/dL (8-24); Bun/Creatinine Ratio 10.5 (12.0-20.0); CO2, Blood 23 mmol/L (21-32); Calcium, Blood 9.4 mg/dL (8.5-10.1); Chloride, Blood 97 mmol/L (98-108); Creatinine, Blood 6.84 mg/dL (0.40-1.00); Globulin, Blood 5.5 g/dL (2.2-4.0); Glomerular Filtration Rate 7 (60-); Glucose, Blood 225 mg/dL (70-99); Magnesium, Blood 2.4 mg/dL (1.6-2.4); Phosphorus, Blood 6.1 mg/dL (2.5-4.9); Potassium, Blood 4.3 mmol/L (3.5-5.5); Sodium, Blood 134 mmol/L (136-145); Total Protein, Blood 8.5 g/dL (6.4-8.2)
--- NOTE | 2024-07-10 07:00 | NUR ---
ASSUMPTION OF CARE PT RECEIVING PROPOFOL 30MCG/KG/MIN AND FENTANYL 25MCG/HR. SHE IS INTUBATED WITH VENT SETTINGS AC/VC 14/420/5/30%. HER EYES ARE OPEN WITH UPWARD GAZE. EYELIDS FLICKER. MYOCLONIC JAW MOVEMENTS. LIMBS ARE FLACCID. LUNGS ARE COARSE, DIMINISHED IN BASES. PT IS HAVING COPIOUS AMOUNTS OF ORAL SECRETIONS. SINUS ON MONITOR WITH RATE IN 80S. SBP 140S-170S. OGT TO LIS. RECTAL TUBE PATENT WITH SMALL AMOUNT OF LIQUID BROWN OUTPUT IN TUBING. TEMP JUAREZ PATENT AND DRAINING TO GRAVITY. AFEBRILE. ALVERTO AT BEDSIDE.
--- NOTE | 2024-07-10 07:17 | NUR ---
SHIFT SUMMARY: PT ARRIVED FROM THE ER INTUBATED AND VENTILATED. SHE HAD A TEMP JUAREZ AND RECTAL TUBE IN PLACE. PT WAS COOL AND PALE. PT EXHIBITED INCREASE MYOCLONIC ACTIVITY THROUGHOUT SHIFT. PUPILS REMAIN EQUAL, EYES HAVE LATERAL DEVIATION AND UPWARD GAZE. SHE HAS TOLERATED THE VENT THROUGHOUT SHIFT. SHE REQUIRED NICARDIPINE FOR BLOOD PRESSURE MANAGEMENT. 80S-90S AND SINUS RHYTHM ON NURSE OUTREACH CASE MANAGER. SHE HAS A CENTRAL LINE, PERIPHERAL LINE, AND IO. DR BENNETT HAS REQUESTED THAT WE MAINTAIN THE IO HE FEELS THE OTHER ACCESS MAY CLOT OFF.
[2024-07-10 08:20] LABS: Influenza A, PCR NEGATIVE (NEGATIVE); Influenza B, PCR NEGATIVE (NEGATIVE); Resp Syncytial Virus, PCR NEGATIVE (NEGATIVE); SARS-Cov-2 (COVID-19) PCR, MMC NEGATIVE (NEGATIVE)
[2024-07-10] MEDS ORDERED: Pantoprazole Sodium 40 MG Injection IV SCH (09:00)
--- NOTE | 2024-07-10 11:23 | NUR ---
UPDATE PT HAD TWO EPISODES OF EMESIS, PROVIDER NOTIFIED. PLAN FOR DIALYSIS TODAY. STS PT ONLY RECEIVED HALF OF TREATMENT YESTERDAY DUE TO DIALYSIS CATH ISSUE. CRUSHING MACHINE OPERATOR UPDATED AND AT BEDSIDE TO ASSESS AND UNABLE TO USE CATH. PROVIDERS AWARE. DIALYSIS CANCELLED. IS NOTIFYING FAMILY WITH UPDATES. NIECE CURRENTLY AT BEDSIDE.
[2024-07-10] MEDS ORDERED: Promethazine HCl 25 MG Tab PT PRN (11:45)
[2024-07-10] MEDS ORDERED: levETIRAcetam 1,000 MG in NS 100 ML IV SCH (12:00)
[2024-07-10] MEDS ORDERED: ACET500 PO (13:34)
[2024-07-10] MEDS ORDERED: Rena-Vite Tabl0.8 MG PO (13:35)
[2024-07-10] MEDS ORDERED: MIDOL COMPLETE1 EAC2 PO (13:37)
[2024-07-10] MEDS ORDERED: [UNRECOGNIZED DRUG - OTHER] TOP (13:39)
--- NOTE | 2024-07-10 15:00 | NUR ---
UPDATE PLAN TO TRANSITION TO COMFORT CARE. FAMILY REQUESTS FOR CEMENTER OIL WELL TO BE AT BEDSIDE. PT'S SPOUSE, SISTER, AND NIECE AT BEDSIDE. AT THIS TIME PROPOFOL AND FENTANYL CONTINUE TO INFUSE. VENT SETTINGS REMAIN UNCHANGED.
[2024-07-10] MEDS ORDERED: Atropine Sulfate 1% Opth Soln 2ML BTL SL PRN ×2 (15:35→16:20)
[2024-07-10] MEDS ORDERED: Morphine Sulfate 10 MG/ML 1MLSYR IV PRN (15:35)
[2024-07-10] MEDS ORDERED: Morphine Sulfate 20 MG/1ML 1 ML Oral Syringe SL PRN (15:35)
[2024-07-10] MEDS ORDERED: LORazepam 2 MG/ML 1ML Injection IV PRN ×2 (15:35→15:40)
[2024-07-10] MEDS ORDERED: Promethazine HCl 25 MG Supp PR PRN (15:35)
[2024-07-10] MEDS ORDERED: Darbepoetin Alfa In Albumn Sol 60 MCG/0.3 ML Syringe SC SCH (16:00)
--- NOTE | 2024-07-10 16:17 | NUR ---
Pt liberated from ventilator, and extended family at bedside. Comfort care orders placed. Bedside RN and travel registered nurse icu also present with . Palliative care continues to comfort family members, assist bedside RN as needed. Will remain available.
[2024-07-10] MEDS ORDERED: Scopolamine Hydrobromide Patch TOP PRN (16:20)
--- NOTE | 2024-07-10 16:30 | NUR ---
EXTUBATION/COMFORT CARE PT TRANSITIONED TO COMFORT CARE AND MEDICATED PER EMAR. EXTUBATED AT 1553 BY RT. FAMILY AT BEDSIDE. PALLIATIVE CARE AND VEIN PUMPER PRESENT.
--- NOTE | 2024-07-10 17:24 | NUR ---
[facility] EOL After extubation with several family at bedside this pusher runner gave comfort and support to the spouse. Several nursing staff and students are present. Scripture is read and Prayers for the Pt. and family are given at multiple times during visit. Pt. passed approx. 1655. Condelences and support are given to the family. Pts. spouse determined that [facility] would be the choice of Home. Spouse went for a wal[employer] to talk to his boss. This pusher runner notified the nursing staff about the home.
--- NOTE | 2024-07-10 18:46 | NUR ---
TIME OF TIME OF 1656. FAMILY AT BEDSIDE. ITEMS FROM [facility] PROVIDED. TOOK ALL BELONGINGS INCLUDING PT'S HOME MEDICATIONS. ICE APPLIED TO EYES. POST-MORTEM CARE PERFORMED.
== END 2024-07-10 16:57 | DRG 296 ==
LOC: ER 16:32 → ICUE 19:13
PROVIDERS: Nurse Practitioner Acute Care; Student in an Organized Health Care Education/Training Program; ADMIT Student in an Organized Health Care Education/Training Program
PROC: 5A1945Z Respiratory Ventilation, 24-96 Consecutive Hours (ICD-10-PCS; principal; 2024-07-09)
PROC: 05HY33Z Insertion of Infusion Device into Upper Vein, Percutaneous Approach (ICD-10-PCS; 2024-07-09)
PROC: 3E033XZ Introduction of Vasopressor into Peripheral Vein, Percutaneous Approach (ICD-10-PCS; 2024-07-09)
PROC: 0T9B70Z Drainage of Bladder with Drainage Device, Via Natural or Artificial Opening (ICD-10-PCS; 2024-07-09)
DX: I46.9 Cardiac arrest, cause unspecified (principal); J18.9 Pneumonia, unspecified organism; J81.0 Acute pulmonary edema; N18.6 End stage renal disease; R40.20 Unspecified coma; G93.1 Anoxic brain damage, not elsewhere classified; E87.20 Acidosis, unspecified; I13.11 Hypertensive heart and chronic kidney disease without heart failure, with stage 5 chronic kidney disease, or end stage renal disease; E87.1 Hypo-osmolality and hyponatremia; Z51.5 Encounter for palliative care; Z66 Do not resuscitate; I16.0 Hypertensive urgency; E11.22 Type 2 diabetes mellitus with diabetic chronic kidney disease; E03.9 Hypothyroidism, unspecified; E78.5 Hyperlipidemia, unspecified; G25.3 Myoclonus; F32.A Depression, unspecified; F17.210 Nicotine dependence, cigarettes, uncomplicated; E66.01 Morbid (severe) obesity due to excess calories; D63.1 Anemia in chronic kidney disease; E87.70 Fluid overload, unspecified; Z86.718 Personal history of other venous thrombosis and embolism; Z79.4 Long term (current) use of insulin; Z88.8 Allergy status to other drugs, medicaments and biological substances; Z99.2 Dependence on renal dialysis; Z79.01 Long term (current) use of anticoagulants; Z68.39 Body mass index [BMI] 39.0-39.9, adult; Z78.1 Physical restraint status
CPT/HCPCS: 0241U; 36556; 51702; 70450; 71045; 71260; 72125; 74177; 80047; 80053; 80202; 81001; 82010; 82803; 82947; 83605; 83690; 83735; 83880; 84100; 84145; 84484; 85014; 85025; 85610; 93005; 93010; 93306; 94002; 94003; 99285-25; A9270; C1751; J0696; J1953; J2060; J2270; J2470; J2543; J2704; J3010; J3370; J7040; J7050; J7060; Q9967